=== PATIENT | female | born 1970 | race African-American/Black ===

== ENCOUNTER 2019-05-16 05:59 | Day surgery (SDC) | payer OTHER ==
[2019-05-12 12:16] VITALS: BMI 31.1
[2019-05-16] MEDS ORDERED: MIDAZOLAM HCL 2 MG/2 ML SINGLE DOSE VIAL ONE ×2 (07:09→07:50)
[2019-05-16] MEDS ORDERED: BUPIVACAINE HCL/PF 0.5% (5 MG/ML) 30 ML VIAL IJ ONE (07:09)
[2019-05-16] MEDS ORDERED: ONDANSETRON 4 MG/2 ML VIAL ONE (07:45)
[2019-05-16] MEDS ORDERED: PROPOFOL 20 ML ONE ×2 (07:45→08:58)
[2019-05-16] MEDS ORDERED: ceFAZolin SODIUM 1 GM VIAL ONE (07:45)
[2019-05-16] MEDS ORDERED: KETOROLAC TROMETHAMINE 30 MG/1 ML VIAL ONE (07:45)
[2019-05-16] MEDS ORDERED: SODIUM CHLORIDE 0.9% P/F 10 ML VIAL IJ ONE (07:45)
[2019-05-16] MEDS ORDERED: DEXAMETHASONE SOD PHOSPHATE 4 MG/1 ML VIAL ONE (07:45)
[2019-05-16] MEDS ORDERED: ACETAMINOPHEN 1000 MG/100 ML VIAL (NON FORMULARY) IVPB ONE (10:06)
[2019-05-16] MEDS ORDERED: oxyCODONE HCL 5 MG TABLET PO PRN ×2 (10:06)
[2019-05-16] MEDS ORDERED: ONDANSETRON 4 MG/2 ML VIAL IVPUSH PRN (10:06)
[2019-05-16] MEDS ORDERED: ACETAMINOPHEN INJECTION 100 ML IVPB ONE (10:08)
[2019-05-16] MEDS ORDERED: LACTATED RINGERS SOLUTION 1,000 ML IV SCH (10:15)
--- NOTE | 2019-05-16 11:19 | OP ---
DATE OF OPERATION: 05/16/2019 PREOPERATIVE DIAGNOSIS: Tearing of the right shoulder rotator cuff with frozen shoulder. POSTOPERATIVE DIAGNOSES: 1. Frozen right shoulder with adhesive capsulitis. 2. Glenoid labral tearing. 3. Impingement from the lateral clavicle including the articular portion. 4. Impingement from the acromion. 5. Inflamed bursal tissue. 6. Rotator cuff tearing. PROCEDURE PERFORMED: 1. Arthroscopy with manipulation under anesthesia of the right shoulder with lysis and resection of adhesions. 2. Partial glenoid labral resection. 3. Lateral clavicular resection including the articular portion, a Ray procedure. 4. Acromioplasty. 5. Bursectomy. 6. Rotator cuff debridement for Partial-thickness rotator cuff tear. SURGEON: Suzanna Narvaez MD [employer] LICENSEE: STEVE Joiner ANESTHESIOLOGIST: Amy Hilario MD TYPE OF ANESTHESIA: Interscalene block. The procedure consisted of the patient being brought into the operating room and gently transferred from the stretcher to the OR table with all bony prominences well padded. The right shoulder was prepared and draped in a sterile fashion. The patient was given intravenous antibiotics and copious irrigation throughout the procedure to minimize risk for infection. A complete risk, benefit, alternative discussion was conducted with the patient, which was inclusive of, but not limited to, infection, bleeding, , paralysis, increased pain, need for repeat surgery. Patient asked questions, understood the procedure, and desired to proceed with surgical treatment. Following sterile preparation and draping of the right shoulder, an appropriate timeout was conducted which was inclusive of, but not limited to , type of surgery, site of surgery, surgeon, and anesthesiologist. Following sterile preparation and draping of the right shoulder, the patient had been placed in the [id number], lateral decubitus position. A pillow between the legs and a pillow below the legs were placed to protect the lower extremities. A pneumatic- conforming thornton bag cushion was used to support the torso and the body. An axillary roll was placed to protect the lower shoulder. The neck was kept in good alignment by the anesthesiologist, and the face was protected throughout the procedure by the anesthesiologist. Following sterile preparation and draping, gentle manipulation, which was performed in a slow, steady fashion, was performed for the frozen right shoulder. Initial range of movement was 90 degrees flexion, 90 degrees abduction, extension 10 degrees, internal rotation 60 degrees, external rotation 10 degrees. Following the slow gentle manipulation under anesthesia, abduction was 160 degrees, flexion 160 degrees, extension 30 degrees, internal rotation 95 degrees, external rotation 30 degrees. The shoulder had been placed in gentle traction of approximately 8 pounds. The anterior, posterior, and lateral portals were used to introduce the arthroscope and arthroscopic instruments. The anterior portal was fabricated using the inside-out method over transfer ritchie to protect the neurovascular structures in the anterior shoulder. The glenohumeral joint was evaluated. There were noted to be adhesions within the joint, which were lysed and resected. There was noted to be joint debris in the glenohumeral joint, and a joint debridement was performed which was extensive. Anterior and posterior recesses were without plica and/or loose body. The glenoid labrum was found to have a tear, and a partial glenoid labral resection was performed using shaver and radiofrequency wand. The articular side rotator cuff was examined. There was noted to be tearing of the rotator cuff. This was probed and found to be partial thickness, and this was debrided using shaver and radiofrequency wand. The shoulder joint was copiously irrigated. It should be noted that the middle glenohumeral ligament and biceps tendon were found to be intact. Our attention was then turned to the subacromial space. There was noted to be inflamed bursal tissue, and an extensive partial bursectomy was performed. The rotator cuff on the bursal side was found to be intact. The outer edge of acromion was noted to have an edge of bone impinging upon the rotator cuff and this was debrided using a high-speed shon and shaver was used to resect a wedge of bone thick anteriorly. Lateral clavicle was also creating impingement, and this was debrided using shaver. Radiofrequency wand and shon were used to resect the lateral clavicle including the articular portion. The shoulder joint was then copiously irrigated, and the wounds were closed with 4-0 undyed Vicryl, followed by Steri-Strips, Xeroform, 4 x 4's, combine, and Elastoplast with a shoulder immobilizer. The patient was then gently awoken from anesthesia without incident and transferred from the operating room to the recovery room in satisfactory condition. There were no intraoperative complications. SUZANNA NARVAEZ M.D. [id number]
[2019-05-16 11:58] VITALS: BP 145/86; PULSE 61; TEMP 97.5
--- NOTE | 2019-05-16 15:21 | SURG ---
Surgery Architectural Manager Note Architectural Manager: Rosey Montano PA-C Date of Service: 05/16/19 Diagnosis: tear of the right shoudler rotator cuff with frozen shoulder Procedure: Arthroscopy with manipulation under anesthesia of the right shoulder and resection of adhesions partial glenoid labral resection lateral clavicular resection including the articular portion, a Ray procedure acriomioplasty bursectomy rotator cuff debridment partial thickness rotator cuff tear I was present for the entirety of the operative procedure. For further detail, please refer to operative report. Visit type - Case Type Case Type: Scheduled - Emergency Emergency Visit: No - New patient This patient is new to me today: Yes Date on this admission: 05/16/19
== END 2019-05-16 12:00 | disposition home or self-care (01) ==
LOC: FASU 05:59
PROVIDERS: ATTEND Orthopaedic Surgery
PROC: 0PB94ZZ Excision of Right Clavicle, Percutaneous Endoscopic Approach (ICD-10-PCS; 2019-05-16)
PROC: 0RBJ4ZZ Excision of Right Shoulder Joint, Percutaneous Endoscopic Approach (ICD-10-PCS; 2019-05-16)
PROC: 0RNJ4ZZ Release Right Shoulder Joint, Percutaneous Endoscopic Approach (ICD-10-PCS; 2019-05-16)
PROC: 0LM14ZZ Reattachment of Right Shoulder Tendon, Percutaneous Endoscopic Approach (ICD-10-PCS; principal; 2019-05-16 08:55)
DX: M75.111 Incomplete rotator cuff tear or rupture of right shoulder, not specified as traumatic (principal); M75.01 Adhesive capsulitis of right shoulder; M24.111 Other articular cartilage disorders, right shoulder; M75.41 Impingement syndrome of right shoulder; M75.51 Bursitis of right shoulder
CPT/HCPCS: 84703; 94760; J0131